=== PATIENT | female | born 1980 | race Caucasian/White ===

== ENCOUNTER → 2020-04-05 15:39 | Outpatient (CLI) | payer OTHER, MEDICAID, SELFPAY ==
[2020-04-06 18:36] LABS: COVID19 Sendout Not Detected (Not Detected)
== END ==
PROVIDERS: Visit Provider Physician Assistant
DX: Z11.59 Encounter for screening for other viral diseases (principal)
CPT/HCPCS: 87635

== ENCOUNTER → 2022-09-06 12:00 | Outpatient (CLI) | payer OTHER, MEDICAID, SELFPAY | PROVIDERS: Visit Provider Physician Assistant Medical | DX: J02.9 Acute pharyngitis, unspecified (principal) | CPT/HCPCS: 87070; 87077; 87147; 87880 ==

== ENCOUNTER → 2024-09-14 11:47 | Outpatient (CLI) | payer OTHER, SELFPAY ==
--- NOTE | 2024-09-14 | DI.US.S_ITS ---
PROCEDURE: US ABDOMEN LIMITED INDICATIONS: ABDOMINAL WALL MASS TECHNIQUE: Real-time focused scanning was performed of the abdomen, with image documentation. COMPARISON: None. FINDINGS: Scan is performed at the area of clinical concern within the left lower quadrant. At this site, there is a hyperechoic ill-defined focus seen without abnormal vascularity measuring 13 x 10 x 6 mm. No findings of hernia defect can be seen at this site. IMPRESSION: 13 mm focus seen at the site of clinical concern. This may be related to a complex lipoma. If clinically appropriate, please consider follow-up CT or MRI for further evaluation Dictated by: Fredo Pope M.D. on 09/14/2024 at 12:53 Approved by: Fredo Pope M.D. on 09/14/2024 at 12:55
== END ==
PROVIDERS: PCP Family Medicine; Referring Provider Family Medicine; Visit Provider Family Medicine
DX: R22.2 Localized swelling, mass and lump, trunk (principal)
CPT/HCPCS: 76705

== ENCOUNTER → 2025-02-16 13:32 | Outpatient (ROUT) | payer SELFPAY ==
[2025-02-16 14:14] LABS: COVID-19 CEPHEID 4-PLEX PCR Negative (Negative); Influenza A - CEPHEID Flu A POSITIVE (NEGATIVE); Influenza B - CEPHEID Flu B NEGATIVE (NEGATIVE)
== END ==
PROVIDERS: PCP Family Medicine; Visit Provider Family Medicine
DX: R05.9 Cough, unspecified (principal); R50.9 Fever, unspecified
CPT/HCPCS: 87637